=== PATIENT | female | born 1965 | race Caucasian/White ===

== ENCOUNTER 2022-08-31 08:56 | Outpatient (CLI) | payer BC, SELFPAY ==
--- NOTE | 2022-08-31 08:45 | RT.EKG_ITS ---
APPROVED REPORT Exam: Resting ECG Reason for Exam: CP, Palpitations Patient Location: O HR:86 bpm ECG Measurements Heart Rate 86 AXIS KS 144 P 67 QRSd 85 QRS -7 QT 360 T 26 QTc 431 Conclusion Sinus rhythm...normal P axis, V-rate 50- 99 Normal Electrocardiogram
== END 2022-08-31 08:57 | disposition home or self-care (01) ==
LOC: DI.CARD 08:56
PROVIDERS: PCP Neuromusculoskeletal Medicine & OMM; Visit Provider Internal Medicine Cardiovascular Disease
DX: R00.2 Palpitations (principal); R07.9 Chest pain, unspecified; R55 Syncope and collapse
CPT/HCPCS: 93010

== ENCOUNTER 2022-08-31 13:25 | Outpatient (CLI) | payer BC, SELFPAY | END 2022-08-31 13:26 | disposition home or self-care (01) | LOC: CARDOPNVT 13:25 | PROVIDERS: PCP Neuromusculoskeletal Medicine & OMM; Visit Provider Internal Medicine Cardiovascular Disease | DX: R00.2 Palpitations (principal) | CPT/HCPCS: 93270 ==

== ENCOUNTER 2022-10-01 08:14 | Outpatient (CLI) | payer BC, SELFPAY ==
--- NOTE | 2022-10-01 09:54 | W.CARDEVENT ---
Date of service: 10/01/22 Time of Service: 09:54 Cardiac Event Recorder Referring Provider:: Gely Overton Indications:: Palpitations Cardiac Event Note: This is a 30-day event monitor ordered for palpitations. Rhythm throughout was sinus with an average heart rate of 81. Minimum was 57, maximum 162 No significant dysrhythmias were recorded
== END 2022-10-01 08:15 | disposition home or self-care (01) ==
LOC: CARDOPNVT 08:14
PROVIDERS: PCP Neuromusculoskeletal Medicine & OMM; Visit Provider Internal Medicine Cardiovascular Disease
DX: R00.2 Palpitations (principal)